=== PATIENT | female | born 1995 | race Caucasian/White ===

== ENCOUNTER 2021-10-14 20:11 | Emergency (ER) | payer OTHER ==
--- NOTE | 2021-10-14 21:21 | NUR ---
CALLED IN LOBBY, NO ANSWER.
--- NOTE | 2021-10-14 21:22 | NUR ---
CALLED CALL PHONE, WENT STRAIGHT TO VOIC[employer]AIL.
--- NOTE | 2021-10-14 21:22 | NUR ---
PATIENT LEFT WITHOUT BEING SEEN BY DR. HENAO. NO FURTHER CARE PROVIDED FOR PATIENT.
== END 2021-10-14 21:21 | disposition left against medical advice (07) ==
LOC: MED 20:11
DX: Z53.21 Procedure and treatment not carried out due to patient leaving prior to being seen by health care provider (principal)